=== PATIENT | male | born 1955 | race Caucasian/White ===

== ENCOUNTER 2017-08-20 00:01 | Outpatient (POV) ==
[2016-08-16 21:28] VITALS: BMI 14.9
== END 2017-08-20 00:02 ==
LOC: OUTPT 00:01
PROVIDERS: ATTEND Otolaryngology
DX: H93.19 Tinnitus, unspecified ear (principal)
CPT/HCPCS: 92557; 92567

== ENCOUNTER 2019-02-23 07:25 | Day surgery (SDC) ==
[2016-08-16 21:28] VITALS: BMI 14.9
[2019-02-23] MEDS: OCUFEN 0.03% OPTH SOL OP PRN ×3 (08:30→09:00)
[2019-02-23] MEDS: AK-DILATE 10% OPTH SOL OP PRN ×3 (08:30→08:40)
[2019-02-23] MEDS: TETRACAINE 0.5% UNIT-DOSE OP PRN ×4 (08:30→09:51)
[2019-02-23] MEDS: CYCLOGYL 2% OPTH OP PRN ×3 (08:30→08:40)
[2019-02-23] MEDS ORDERED: LIDOCAINE HCL 1% SDV INJ PRN (08:55)
[2019-02-23] MEDS ORDERED: BSS WITH EPINEPHRINE OP ONE (08:55)
[2019-02-23] MEDS ORDERED: DIAMOX PO STA (08:55)
[2019-02-23] MEDS ORDERED: LIDOCAINE 1% 20 ML MDV ID STA (08:55)
[2019-02-23] MEDS ORDERED: SUBLIMAZE ONE (09:45)
[2019-02-23] MEDS ORDERED: VERSED ONE (09:45)
[2019-02-23] MEDS ORDERED: TIMOPTIC 0.5% OPTH OP PRN (09:56)
[2019-02-23] MEDS ORDERED: OCUFLOX 0.3% OPTH SOL OP PRN (09:56)
[2019-02-23] MEDS ORDERED: PRED FORTE 1% OP PRN (09:56)
[2019-02-23] MEDS ORDERED: DIAMOX ONE (10:55)
[2019-02-23 11:24] VITALS: TEMP 98.7
[2019-02-23 11:31] VITALS: BP 121/66
[2019-02-23] MEDS ORDERED: BETADINE OPTH PREP OP ONE (11:34)
--- NOTE | 2019-02-24 09:46 | OP ---
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 OPERATION PHACOEMULSIFICATION ASPIRATION OF CATARACT RIGHT EYE. PLACEMENT OF POSTERIOR CHAMBER LENS. PHACO TIME 32.3 SECONDS AT 5.0% POWER. LENS MODEL TECNIS [id number]. DIOPTER +12.0D. TECHNIQUE: CLEAR CORNEA. ANESTHESIA: TOPICAL ANESTHESIA W/ANESTHESIA MONITORING. OPERATIVE REPORT: Topical anesthesia consisting of Tetracaine was applied to the cornea and Xylocaine Methyl Paraben free of MFP was injected intracamerally into the anterior chamber. The patient was then brought into the operating room , prepped and draped in the usual ophthalmic manner. A lid speculum was placed and the operating microscope was used. A paracentesis was made at the 3 o' clock position. A clear corneal incision was made just out to the limbus. The anterior chamber was entered just inside the clear cornea. Viscoelastic was injected into the anterior chamber. A capsulotomy was performed with a bent # 27 gauge needle. Phacoemulsification was then performed in the posterior chamber. After completion of the phacoemulsification, residual cortical material was aspirated with the irrigation-aspiration system. The posterior capsule was polished. Viscoelastic was injected into the anterior and posterior chambers to inflate the capsular bag. Lens were placed via an Unfolder system and stabilized in the bag. Viscoelastic was removed from the anterior chamber. The wound was checked for any leakage. The four sponges were removed from the fornix. Topical antibiotic steroid and nonsteroidal drops were also applied to the cornea. A Arboleda shield was applied. The patient left the operating room in good condition without any complications. INTRAOPERATIVE MEDICATIONS: Xylocaine Methyl Paraben Free MPF MTDD
== END 2019-02-23 11:00 | disposition home or self-care (01) ==
LOC: SURG 07:25
PROVIDERS: ATTEND Ophthalmology
DX: H25.13 Age-related nuclear cataract, bilateral (principal)

== ENCOUNTER 2019-02-25 15:51 | Outpatient (CLI) ==
[2016-08-16 21:28] VITALS: BMI 14.9
== END 2019-02-25 15:52 | disposition home or self-care (01) ==
LOC: RHC-LAB 15:51
PROVIDERS: ATTEND Nurse Practitioner Family
DX: Z00.00 Encounter for general adult medical examination without abnormal findings (principal)
CPT/HCPCS: 36415; 80053; 80061; 85025

== ENCOUNTER 2019-04-27 06:01 | Day surgery (SDC) ==
[2016-08-16 21:28] VITALS: BMI 14.9
[2019-04-27] MEDS: TETRACAINE 0.5% UNIT-DOSE OP PRN ×4 (06:26→07:00)
[2019-04-27] MEDS: CYCLOGYL 2% OPTH OP PRN ×3 (06:26→06:36)
[2019-04-27] MEDS: AK-DILATE 10% OPTH SOL OP PRN ×3 (06:26→06:36)
[2019-04-27] MEDS: OCUFEN 0.03% OPTH SOL OP PRN ×4 (06:27→07:13)
[2019-04-27] MEDS: LIDOCAINE 1% 20 ML MDV ID STA ×3 (06:30→07:15)
[2019-04-27] MEDS ORDERED: VERSED ONE (06:55)
[2019-04-27] MEDS ORDERED: DIAMOX PO STA (06:56)
[2019-04-27] MEDS ORDERED: DIAMOX ONE (07:56)
[2019-04-27 08:00] VITALS: BP 142/68
--- NOTE | 2019-04-27 14:16 | OP ---
PREOPERATIVE DIAGNOSIS: VISUALLY SIGNIFICANT CATARACT LEFT EYE. POSTOPERATIVE DIAGNOSIS: SAME. OPERATION PHACOEMULSIFICATION ASPIRATION OF CATARACT LEFT EYE. PLACEMENT OF POSTERIOR CHAMBER LENS. PHACO TIME 35.0 SECONDS AT 5.0% POWER. LENS MODEL GLENROY [id number]. DIOPTER +12.5D. TECHNIQUE: CLEAR CORNEA. ANESTHESIA: TOPICAL ANESTHESIA W/ANESTHESIA MONITORING. OPERATIVE REPORT: Topical anesthesia consisting of Tetracaine was applied to the cornea and Xylocaine Methyl Paraben free of MFP was injected intracamerally into the anterior chamber. The patient was then brought into the operating room , prepped and draped in the usual ophthalmic manner. A lid speculum was placed and the operating microscope was used. A paracentesis was made at the 3 o' clock position. A clear corneal incision was made just out to the limbus. The anterior chamber was entered just inside the clear cornea. Viscoelastic was injected into the anterior chamber. A capsulotomy was performed with a bent # 27 gauge needle. Phacoemulsification was then performed in the posterior chamber. After completion of the phacoemulsification, residual cortical material was aspirated with the irrigation-aspiration system. The posterior capsule was polished. Viscoelastic was injected into the anterior and posterior chambers to inflate the capsular bag. Lens were placed via an Unfolder system and stabilized in the bag. Viscoelastic was removed from the anterior chamber. The wound was checked for any leakage. The four sponges were removed from the fornix. Topical antibiotic steroid and nonsteroidal drops were also applied to the cornea. A Arboleda shield was applied. The patient left the operating room in good condition without any complications. INTRAOPERATIVE MEDICATIONS: Xylocaine Methyl Paraben Free MPF MTDD
== END 2019-04-27 08:15 | disposition home or self-care (01) ==
LOC: SURG 06:01
PROVIDERS: ATTEND Ophthalmology
DX: Z96.1 Presence of intraocular lens (principal); H26.9 Unspecified cataract